=== PATIENT | female | born 1950 | race Caucasian/White ===

== ENCOUNTER 2024-09-23 22:25 | Emergency (ER) | payer MEDICARE, SELFPAY ==
[2024-09-23 22:27] VITALS: BP 208/105
[2024-09-23 22:50] VITALS: BMI 23.0
--- NOTE | 2024-09-24 00:05 | ED.GENMED ---
History of Present Illness
<CANDELARIO Eduardo - Last Filed: 09/24/24 02:04>
General
Chief Complaint: Dental Problem
Source: patient
Exam Limitations: none
Time Seen by Provider: 09/23/24 22:54
Nursing documentation reviewed up to this point in time: agreed with
History of Present Illness
History of Present Illness:
Patient is a 74-year-old female who presents with mouth pain. Patient started with pain to left front tooth saw her dentist and was placed on antibiotics but now has a lump to the roof of her mouth that is causing her discomfort. She denies any
fevers . She is supposed to see her dentist tomorrow.
Review of Systems
<CANDELARIO Eduardo - Last Filed: 09/24/24 02:04>
Review of Systems
All Other Systems: ROS reviewed and negative except as documented in HPI and ROS
Constitutional: Reports no symptoms; Denies fever
EENT: Reports other (+ pain /swelling to upper mouth no dental tenderness no trismus )
Respiratory: Reports no symptoms
Cardiac: Reports no symptoms
ABD/GI: Reports no symptoms
: Reports no symptoms
Musculoskeletal: Reports no symptoms
Skin: Reports no symptoms
Neurological: Reports no symptoms
Psychiatric: Reports no symptoms
Phy Exam
<CANDELARIO Eduardo - Last Filed: 09/24/24 02:04>
General Physical Exam
General Presentation: no apparent distress
General age: appears stated age
General Skin: warm and dry
General Habitus: normal
General Mental: alert
General Hydration: appears well hydrated
ENT Exam
ENT Exam: other (+ small abscess to roof of mouth )
Neurological Exam
Neurological Exam: alert and oriented x3
Musculoskeletal Exam
Musculoskeletal Exam: full ROM
Skin Exam
Skin Exam: normal color and warm/dry
Psychiatric Exam
Psychiatric Exam: normal mood/affect
Course
<CANDELARIO Eduardo - Last Filed: 09/24/24 02:04>
Orders/Labs/Results
Orders:
Orders
09/24/24 01:28
Ondansetron Orally Disint [Zofran Odt (Orally Disintegrating)] 4 mg PO NOW STA
Oxycodone [Roxicodone] 5 mg PO NOW STA
09/24/24 01:31
Acetaminophen [Tylenol] 1,000 mg PO NOW STA
Vital Signs
Initial and Last Documented VS:
Initial Vital Signs
Pulse Resp BP Pulse Ox
66 20 208/105 97
09/23/24 22:27 09/23/24 22:27 09/23/24 22:27 09/23/24 22:27
Last Documented Vital Signs
Temp Pulse Resp BP Pulse Ox
98.3 F 71 20 212/79 99
09/24/24 00:09 09/24/24 01:45 09/24/24 01:45 09/24/24 00:09 09/24/24 01:45
<Daniel Cornell DO - Last Filed: 09/24/24 01:33>
Orders/Labs/Results
Orders:
Orders
09/24/24 01:28
Ondansetron Orally Disint [Zofran Odt (Orally Disintegrating)] 4 mg PO NOW STA
Oxycodone [Roxicodone] 5 mg PO NOW STA
09/24/24 01:31
Acetaminophen [Tylenol] 1,000 mg PO NOW STA
Vital Signs
Initial and Last Documented VS:
Initial Vital Signs
Pulse Resp BP Pulse Ox
66 20 208/105 97
09/23/24 22:27 09/23/24 22:27 09/23/24 22:27 09/23/24 22:27
Last Documented Vital Signs
Temp Pulse Resp BP Pulse Ox
98.3 F 71 20 212/79 99
09/24/24 00:09 09/24/24 01:45 09/24/24 01:45 09/24/24 00:09 09/24/24 01:45
<CANDELARIO Eduardo - Last Filed: 09/24/24 02:04>
MDM/Problems Addressed
MDM/Problems Addressed:
+ abscess to roof of mouth drained by ED physician in no distress, afebrile . pt has appt with dentist today.
<Daniel Cornell DO - Last Filed: 09/24/24 01:33>
*Radiology
Radiology exam reviewed: other (na)
*Pulse Oximetry
Patient hypoxic: no
*EKG
Interpreted by ED Provider?: NA
*Instantizer Operator Interpretation
Rate: Instantizer Operator- N/A
*Critical Care Note
Total Time (30-74mins, 75-104mins- exclusive of procedures): Not Applicable
ED Attending Note
<CANDELARIO Eduardo - Last Filed: 09/24/24 02:04>
-
Portions of this chart may have been created with voice recognition software.� Occasional wrong word or��sound alike� substitutions may have occurred due to the inherent limitations of voice recognition software.
<Daniel Cornell DO - Last Filed: 09/24/24 01:33>
ED Attending Note
Patient seen and examined by attending physician: Yes
I performed the substantive portion of visit, reviewed & personally made and approve the management plan that is documented in note by myself or LEANN.: Yes
ED Attending Note:
Patient is a 74-year-old female who scheduled for a root canal in 5 days since he heard dentist later today who has been on antibiotics for 5 days for a dental abscess. Patient noticed a lump behind her front teeth that is painful. Patient denies
any difficulty swallowing. Patient denies fever or chills. Patient was told she had a dental abscess and required root canal. On physical exam the patient just posterior to her upper central incisors is a tender somewhat fluctuant approximately 1
cm x 1 cm raised area. It is not a torus palatinus. Patient's sublingual area is not swollen. Oropharynx is clear. Patient has some gingival disease and is tender along the right central and right lateral upper incisors. Questionable Kayla.
The area was numbed up with 1% lidocaine with bicarb and epi. A small incision was made with a #11 blade and purulent material was expressed. Area was irrigated and suctioned. Patient tolerated procedure well. Bleeding is stopped. Patient is no
longer on antibiotics. Patient is to see the dentist in approximately 12 hours. Patient will be discharged. Patient is unable to take Advil because of an ulcer.
Discharge Plan
Departure
Patient Disposition: Home (Routine Discharge)
Date of Disposition: 09/24/24
Time of Disposition: 01:31
Patient with high blood pressure during this ER visit?: Yes
Condition: Fair
Covid-19: Not Applicable
Discharge Problem:
Dental abscess, Abscess
Instructions: Tooth Abscess (DC), Dental Pain ED, BLOOD PRESSURE
Referrals:
Estela Handley MD [Family Provider] - Follow up in 5-7 days
Activity Restrictions/Additional Instructions:
Make sure to see your dentist as scheduled today. Continue present medications and therapy. Your blood pressure is elevated today and typically we do not treat elevated blood pressure that is asymptomatic in the emergency department. It is
essential that you follow-up with your family doctor. Make sure to rinse out your mouth with water after every meal. You may take 650 mg to 1000 mg of acetaminophen every 6 hours.
Interventions
Interventions:
*Risk Screen - Suicide Last Done: 09/23/24 22:27
*General Assessment Last Done: 09/24/24 01:45
*Neglect/Abuse Screening Last Done: 09/23/24 22:35
ED- Fall Risk Assessment Last Done: 09/23/24 22:50
*ED COVID-19 Vaccine History Last Done: 09/23/24 22:34
*Nursing Disposition Last Done: 09/24/24 01:45
Discharge Date and Time
Discharge Date/Time: 09/24/24 01:47
Print Language: SPANISH
[2024-09-24 00:09] VITALS: BP 212/79
[2024-09-24] MEDS: TYLENOL 1000 MG PO (01:37)
== END 2024-09-24 01:47 | disposition home or self-care (01) ==
LOC: EMR 22:25
PROVIDERS: EMERGENCY PHYSICIAN Emergency Medicine; FAMILY PHYSICIAN Family Medicine
DX: K04.7 Periapical abscess without sinus (principal); R03.0 Elevated blood-pressure reading, without diagnosis of hypertension
CPT/HCPCS: 99283; 41800

== ENCOUNTER 2024-10-08 06:33 | Day surgery (SDC) | payer MEDICARE, SELFPAY | END 2024-10-08 14:01 | disposition home or self-care (01) | LOC: GI 06:33 | PROVIDERS: ATTENDING PHYSICIAN Internal Medicine | DX: Z09 Encounter for follow-up examination after completed treatment for conditions other than malignant neoplasm (principal); K44.9 Diaphragmatic hernia without obstruction or gangrene; K27.5 Chronic or unspecified peptic ulcer, site unspecified, with perforation | CPT/HCPCS: 43239; 88305; 88342 ==

== ENCOUNTER 2025-02-27 19:41 | Emergency (ER) | payer OTHER, SELFPAY ==
[2025-02-27 19:45] VITALS: BP 174/102
[2025-02-27 20:05] LABS: % Basophils 0.6 % (0-2); % Eosinophils 1.2 % (0-6); % Immature Granulocytes 0.2 % (0-0.5); % Lymphocytes 29.9 % (20.5-51.1); % Monocytes 6.4 % (1.7-9.3); % Neutrophils 61.7 % (42.2-75.2); Absolute Eosinophils 0.1 10^3/uL (0-0.7); Absolute Lymphocytes 1.5 10^3/uL (1.2-3.4); Absolute Monocytes 0.3 10^3/uL (0.1-0.6); Hematocrit 41.9 % (37.0-47.0); Hemoglobin 14.3 g/dL (12.0-16.0); Mean Corp Hgb Conc. 34.1 g/dL (33.0-37.0); Mean Corpuscular Hgb 30.6 pg (27.0-31.0); Mean Corpuscular Volume 89.5 fL (81.0-99.0); Mean Platelet Volume 9.4 fL (7.4-10.4); Nucleated Red Blood Cells % 0 %; Platelet Count 182 10^3/uL (130-400); Red Blood Cell Count 4.68 10^6/uL (4.20-5.40); Red Cell Dist. Width 14.1 % (11.5-14.5); White Blood Cell Count 4.9 10^3/uL (4.8-10.8)
[2025-02-27 20:18] LABS: ALT (SGPT) 21 U/L (0-35); AST (SGOT) 25 U/L (14-36); Albumin 4.3 g/dl (3.5-5.0); Alkaline Phosphatase 78 U/L (38-126); Blood Urea Nitrogen 15 mg/dl (7-17); Carbon Dioxide 27 mmol/L (22-30); Chloride 106 mmol/L (98-107); Glucose 117 mg/dl (70-99); Sodium 141 mmol/L (135-145); Total Bilirubin 0.6 mg/dl (0.2-1.3); Total Protein 6.7 g/dl (6.3-8.2); eGFR > 60.00
[2025-02-27 21:54] VITALS: BP 193/94
[2025-02-27 22:36] VITALS: BP 196/83
[2025-02-27 22:42] VITALS: BMI 25.1
[2025-02-27 23:00] VITALS: BP 183/76
[2025-02-27 23:13] VITALS: BP 192/86
[2025-02-27] MEDS: ORETIC 25 MG PO (23:38)
[2025-02-28 00:01] VITALS: BP 177/97
[2025-02-28 01:00] VITALS: BP 192/80
--- NOTE | 2025-02-28 01:15 | ED.GENMED ---
History of Present Illness
General
Chief Complaint: Blood Pressure Problem
Source: patient and family
Exam Limitations: none
Time Seen by Provider: 02/27/25 23:04
Nursing documentation reviewed up to this point in time: agreed with
History of Present Illness
History of Present Illness:
74-year-old female past medical history of hypertension presenting to the emergency department today with concerns of elevated blood pressure at home had some vague lightheadedness as well at home. At the moment patient without any specific
symptoms. Denies chest pain shortness of breath any recent illness or fevers. No numbness or weakness.
Review of Systems
Review of Systems
Allergies reviewed?: Yes
All Other Systems: ROS reviewed and negative except as documented in HPI and ROS
Phy Exam
Physical Exam
Physical Exam:
GENERAL: Alert , in no apparent distress
EYE: pupils equal and reactive
NECK: Supple, no significant adenopathy.
ENT: o/p clr, mmm.
CARDIAC: Regular rate and rhythm .
LUNGS: Clear breath sounds bilaterally, no acute respiratory distress, no wheezes/rales/rhonchi
ABDOMEN: Soft, without focal tenderness, no r/g, no cvat
NEUROLOGICAL: Alert and oriented, no focal neuro deficits
SKIN: Warm and dry, skin intact.
MUSCULOSKELETAL: No edema, well perfused.
PSYCH: Normal and appropriate interaction.
Course
Orders/Labs/Results
Orders:
Orders
02/27/25 19:48
Electrocardiogram (*1) Urgent
Reason for Study: Hypertension, Benign
EKG- Treatment ONCE
02/27/25 19:55
Complete Blood Count/With Diff Urgent
Comprehensive Metabolic Panel Urgent
02/27/25 23:22
Hydrochlorothiazide [Oretic] 25 mg PO NOW STA
Abnormal Lab Results
02/27/25
19:55
Glucose 117 H mg/dl
(70-99)
02/27/25 19:55
02/27/25 19:55
Vital Signs
Initial and Last Documented VS:
Initial Vital Signs
Temp Pulse Resp BP Pulse Ox
97.6 F 64 16 174/102 99
02/27/25 19:45 02/27/25 19:45 02/27/25 19:45 02/27/25 19:45 02/27/25 19:45
Last Documented Vital Signs
Temp Pulse Resp BP Pulse Ox
97.6 F 64 18 177/97 98
02/27/25 19:45 02/28/25 00:30 02/28/25 00:31 02/28/25 00:01 02/28/25 00:15
MDM/Problems Addressed
MDM/Problems Addressed:
74-year-old female presenting to the emergency department today with concerns of elevated blood pressure. Blood pressure elevated throughout the day today. Does not check her blood pressure regularly. She took it due to having a mild headache.
On arrival blood pressure in the 170s over 100 increased to 190s over 100. No ongoing symptoms no evidence of endorgan damage no chest pain EKG normal labs unremarkable. Patient did have elevated blood pressure numbers in the past when visiting
here. Admittedly does not check her blood pressure regularly and claims that her blood pressure was increasing with previous primary care visits. Patient was started on secondary medication otherwise will follow-up closely as an outpatient.
Return precautions given.
*Critical Care Note
Total Time (30-74mins, 75-104mins- exclusive of procedures): Not Applicable
ED Attending Note
-
Portions of this chart may have been created with voice recognition software.� Occasional wrong word or��sound alike� substitutions may have occurred due to the inherent limitations of voice recognition software.
Discharge Plan
Departure
Patient Disposition: Home (Routine Discharge)
Date of Disposition: 02/28/25
Time of Disposition: 01:17
Patient with high blood pressure during this ER visit?: Yes
Condition: Good
Covid-19: Not Applicable
Discharge Problem:
BP (high blood pressure)
Instructions: High Blood Pressure (DC)
Prescriptions:
New
hydrochlorothiazide 25 mg tablet
25 mg PO DAILY Qty: 14 0RF
Referrals:
Estela Handley MD [Family Provider] -
Activity Restrictions/Additional Instructions:
You came to the emergency department today with concerns of elevated blood pressure. Please start taking the hydrochlorothiazide with losartan and follow-up closely with your primary care doctor. Return for any worsening, new or concerning
symptoms.
Interventions
Interventions:
*Risk Screen - Suicide Last Done: 02/27/25 19:47
*General Assessment Last Done: 02/27/25 22:43
*Neglect/Abuse Screening Last Done: 02/27/25 19:47
*ED- Fall Risk Assessment Last Done: 02/27/25 22:43
*ED COVID-19 Vaccine History Last Done: 02/27/25 22:43
ED- Cardiac Assessment Last Done: 02/27/25 22:43
ED- Neurological Assessment Last Done: 02/27/25 22:43
ED- Pulmonary Assessment Last Done: 02/27/25 22:43
Discharge Date and Time
Print Language: INDONESIAN
[2025-02-28 01:19] VITALS: BP 185/77
== END 2025-02-28 02:03 | disposition home or self-care (01) ==
LOC: EMR 19:41
PROVIDERS: Emergency Medicine; EMERGENCY PHYSICIAN Emergency Medicine; FAMILY PHYSICIAN Family Medicine
DX: I10 Essential (primary) hypertension (principal); R42 Dizziness and giddiness
CPT/HCPCS: 99283; 80053; 85025; 93005